=== PATIENT | female | born 1945 | race Caucasian/White ===

== ENCOUNTER → 2016-08-15 | Outpatient (CLI) | payer MEDICARE, BC ==
[~2016-08-15] MED LIST: ACTONEL PO; BRINTELLIX10 MG PO; CELEXA PO; CLOPIDOGREL75 MG PO; HYDROXYZINE HCL25 M1 PO; LANTUS SOL100 UNIT/1 SUBQ; LANTUS100 UNITS/; LASIX20 MG PO; LIPITOR40 MG PO; METOPROLOL SUCC25 MG PO; NORVASC10 MG PO; NOVOLOG FL100 UNIT/1 SUBQ; NOVOLOG100 U/M1; PATIENT'S PHARMACY; PLAVIX PO; SYNTHROID75 MCG PO; TRICOR134 MG PO; URSODIOL250 MG PO; VICTOZA0.6 MG/0.1 SQ; WELLBUTRIN SR PO; XIFAXAN550 MG PO; [UNRECOGNIZED DRUG - OTHER]
--- NOTE | ~2016-08-15 | MR3 ---
[facility] A Service of [facility] RADIOLOGY TEXT RESULTS PATIENT: ADOLFO OLSEN [facility] UN[facility] #: [id number] AGE: [address]: Waqar Archer MD SEX: F ORDER DR: [id number] [facility] [address]. [place], [place] [address] [id number] MR#: [id number] Acc #: [id number] NAME: ADOLFO OLSEN. : 1945 SEX: F STUDY DATE/TIME: 08/15/2016 15:19 UNIT: CMRI ROOM: STUDY DESCRIPTION: MR Abdomen Wo Contrast Attending Physician: Waqar Archer M.D. Ordering Physician: Waqar Archer M.D. Primary Care Physician: Lisbet Ba A.P.R.N. MRI CENTER REPORT This report is preliminary unless electronic signature is present. EXAM MRI abdomen without contrast. INDICATIONS Follow up left renal lesion. PROCEDURE Multisequence, multiplanar MR imaging of the abdomen without the administration of contrast. Contrast was not administered secondary to patient's renal function at the time of this study. GFR was 31. COMPARISON 01/14/2016. FINDINGS The lesion of interest in the lateral left mid kidney measures 1.7 cm and is stable. It has some increased T2 signal intensity and what appears to be internal septations. There is a 1.9 cm benign simple cyst at the lower pole of the right kidney. No new renal lesion is seen on this unenhanced study. Cirrhotic morphology of the liver. No appreciable liver mass is seen on this unenhanced study. Uncomplicated cholelithiasis. Spleen is upper limits of normal to minimally enlarged at 13.2 cm. Re-demonstration of right sided retroperitoneal varices. There is no ascites. Pancreas, biliary system, adrenal glands and bowel loops have normal signal. IMPRESSION 1. The patient did not receive contrast secondary to renal function at the time of this study. 2. The lesion of interest in the lateral left mid kidney is stable in [facility] A Service of [facility] RADIOLOGY TEXT RESULTS PATIENT: ADOLFO OLSEN [facility] 46 UNIT #: [id number] AGE: [address]: Waqar Archer MD SEX: F ORDER DR: size from 01/14/2016. Recommend continued attention on followup to document persistent stability. 3. Benign cyst of the lower pole of the right kidney. 4. Cirrhotic morphology of the liver. No definite liver lesion is seen on this unenhanced study. Dictated by... Torito Norton M.D. THIS IS AN ELECTRONICALLY VERIFIED REPORT Torito Norton M.D. at 08/18/2016 7:14 AM EED/nigel TD: 08/16/2016 14:08 JOB #: [id number] MRI CENTER REPORT Page 1 of 1 COPY
[2016-08-15 15:16] LABS: POC - CREATININE 1.68 mg/dL (0.44-1.03)
[2016-08-15 16:17] LABS: CREATININE SERUM 1.4 mg/dL (0.6-1.4); GLOM FILT RATE Estimated 39.5 mL/min (>60)
== END | disposition home or self-care (01) ==
LOC: CMRI 14:30
PROVIDERS: Urology
DX: N28.89 Other specified disorders of kidney and ureter (principal); N28.1 Cyst of kidney, acquired; K74.60 Unspecified cirrhosis of liver
CPT/HCPCS: 36415; 74181; 82565; 84520

== ENCOUNTER 2016-11-07 05:14 | Inpatient (IN) | payer MEDICARE, BC ==
--- NOTE | ~2016-11-07 | CR72 ---
[facility] A Service of [facility] RADIOLOGY TEXT RESULTS PATIENT: ADOLFO OLSEN LOCATION: [facility] : 47 UNIT #: [id number] AGE: [address]: AMY FARFAN MD SEX: F ORDER DR: [id number] [facility] [address] [place], [place] [address] [id number] I MR#: [id number] Acc #: [id number] NAME: ADOLFO OLSEN. : 1945 SEX: F STUDY DATE/TIME: 11/07/2016 6:19 UNIT: [facility] ROOM: 57034 STUDY DESCRIPTION: CR Chest Single View Portable Attending Physician: Amy Farfan M.D. Ordering Physician: Liang Rice M.D. Primary Care Physician: Lisbet Ba A.P.R.N. MEDICAL IMAGING REPORT This report is preliminary unless electronic signature is present EXAM Single view chest. INDICATIONS Cough and hypoglycemia for 1 day. Shortness of air. FINDINGS Single portable AP view of the chest compared to 01/15/2006. The heart is enlarged. Lung volumes are low. There is crowding of the pulmonary interstitium, which could be due to low lung volumes or mild interstitial edema. No pneumothorax. IMPRESSION 1. Cardiomegaly. 2. Low lung volumes. 3. Prominence of the central pulmonary vasculature may be artifact due to the low lung volumes; however, correlate for any evidence of mild interstitial edema. Dictated by... Buddy Bingham M.D. THIS IS AN ELECTRONICALLY VERIFIED REPORT Buddy Bingham M.D. at 11/07/2016 1:43 PM RPC/palak TD: 11/07/2016 11:00 JOB #: [id number] MEDICAL IMAGING REPORT Page 1 of 1 COPY
--- NOTE | ~2016-11-07 | CR63 ---
[facility] A Service of [facility] RADIOLOGY TEXT RESULTS PATIENT: ADOLFO OLSEN LOCATION: [facility] [id number] : 46 UNIT #: [id number] AGE: [address]: AMY FARFAN MD SEX: F ORDER DR: [id number] [facility] [address] [place], [place] [address] [id number] I MR#: [id number] Acc #: [id number] NAME: ADOLFO OLSEN. : 1945 SEX: F STUDY DATE/TIME: 11/07/2016 11:08 UNIT: CEDOF ROOM: 15092 STUDY DESCRIPTION: CR Chest 2 View Attending Physician: Amy Farfan M.D. Ordering Physician: Andrea Dickinson Jr., M.D. Primary Care Physician: Lisbet Ba A.P.R.N. MEDICAL IMAGING REPORT This report is preliminary unless electronic signature is present EXAM Chest x-ray, 11/07. INDICATIONS Dizziness, shortness of air, weakness and hypoglycemia today. History of hypertension. FINDINGS Two views of the chest are compared with 11/07/16 at 0619 hours. Heart remains enlarged. There are trace effusions. There is continued infiltrate or atelectasis at the left lung base. There is improved aeration at the right base. No pneumothorax. IMPRESSION Stable cardiomegaly. Small bilateral effusions are present with persistent infiltrate or atelectasis at the left base. Aeration of the right lung base has improved since earlier this morning. Dictated by... Zan Rinaldi Jr., M.D. THIS IS AN ELECTRONICALLY VERIFIED REPORT Zan Rinaldi Jr., M.D. at 11/07/2016 4:57 PM ANDREA/palak TD: 11/07/2016 13:41 JOB #: [id number] MEDICAL IMAGING REPORT Page 1 of 1 COPY
--- NOTE | ~2016-11-07 | HP ---
Unit #: [id number] #: [id number] Patient: ADOLFO OLSEN [id number] [address] [address] [id number] I MR#: [id number] NAME: ADOLFO OLSEN ROOM: 10131 Age: 71 Sex: F Admission Date: 11/07/2016 : 1945 Attending Physician: Amy Farfan M.D. Primary Care Physician: Lisbet Ba A.P.R.N. HISTORY AND PHYSICAL CHIEF COMPLAINT Low blood sugar. HISTORY OF PRESENT ILLNESS The patient is a 71-year-old female with a history of chronic kidney disease, diabetes, and nonalcoholic cirrhosis, who presented to the emergency room with a low blood sugar. The patient stated that she is on Lantus and NovoLog. The patient stated that she has been on the same regime for the last three months. However, the patient stated that she has been running low sugars in the last few days in the range of 50s. The patient received D50 in the emergency department and the sugar is up to the 60s, and she is being admitted for the above reasons. The patient denies any fever, chills, nausea, vomiting, or head trauma. PAST MEDICAL HISTORY 1. Chronic kidney disease stage 3. 2. Type 2 diabetes. 3. Hypertension. 4. 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 5. Vitamin D deficiency. 6. Hypothyroidism. 7. Hyperlipidemia. PAST SURGICAL HISTORY 1. Knee surgery. 2. Back surgery. 3. Ankle surgery. 4. Pituitary surgery. 5. Cataract surgery. HOME MEDICATIONS 1. NovoLog Pen. 2. Lantus. 3. Ursodiol. 4. Actonel. 5. Metoprolol. 6. Hydroxyzine. 7. Synthroid. 8. Norvasc. 9. Plavix. 10. Lasix. 11. Xifaxan. ALLERGIES Unit #: [id number] #: [id number] Patient: ADOLFO OLSEN Cymbmio. FAMILY HISTORY Diabetes. SOCIAL HISTORY She is a former smoker. No history of alcohol and no history of illicit drug abuse. REVIEW OF SYSTEMS A 14-point review of systems was performed and only pertinent positive findings are described above. The remaining are negative. PHYSICAL EXAMINATION GENERAL: Patient is lying in bed not in acute distress. VITAL SIGNS: Temperature is 98, pulse 57, respiratory rate 22, blood pressure 107/78, and saturating 98% on room air. HEENT: Head atraumatic, normocephalic. Pupils equal, round, and reactive to light and accommodation. Moist mucous membranes. NECK: Supple. LUNGS: Decreased air entry at the bases. No rhonchi. No wheezing. HEART: Regular rate and rhythm. ABDOMEN: Soft. Positive bowel sounds. EXTREMITIES: No cyanosis. Positive for 2+ pedal edema. SKIN: Patient has telangiectasis along her upper chest wall. NEUROLOGIC: No gross focal motor deficit. DIAGNOSTIC STUDIES LABORATORY: WBC 6.1, hemoglobin 11, hematocrit 34.6, and platelets 129,000. Sodium 138, potassium 3.2, chloride 104, bicarb 26, glucose 93, BUN 40, creatinine 1.9, AST 64, and ALT 39. Lipase 30 and amylase 19. BNP is 817. Glucose 65. Urinalysis shows trace protein. IMAGING: Chest x-ray shows stable cardiomegaly. Small bilateral effusions are present with persistent infiltrate or atelectasis at the left base. Aeration of the right lung base has improved since earlier this morning. ASSESSMENT 1. Hypoglycemia. 2. Acute on chronic kidney disease. 3. Hypokalemia. PLAN Admit patient to observation. Patient will be started on IV fluids of D10 at 30 mL/hr. Replace the potassium per protocol. Will place a Renal consult. Continue with Lasix. Patient will be on Accu-Cheks a.c. and at bedtime and will hold insulin. Further recommendations will follow. Dictated by Erasmo Hemphill TD: 11/07/2016 15:56 JOB #: [id number] Unit #: [id number] #: [id number] Patient: ADOLFO OLSEN HISTORY AND PHYSICAL Page 1 of 1 X AMY FARFAN MD X HISTORY AND PHYSICAL
--- NOTE | ~2016-11-07 | DS ---
Unit #: [id number] #: [id number] Patient: ADOLFO OLSEN [id number] [address] [address] [id number] I MR#: [id number] NAME: ADOLFO OLSEN. ROOM: 335 Age: 71 Sex: F Admission Date: 11/09/2016 : 1945 Discharge Date: Attending Physician: Ginny Ramirez M.D. Primary Care Physician: Lucie YusufPMarioRIra DISCHARGE SUMMARY DISCHARGE DIAGNOSES 1. Significant sinus pauses, greater than 4.5 seconds. Patient is being transferred to [facility] for pacemaker placement by Dr. Arana. 2. New onset atrial fibrillation with tachybrady syndrome, heart rate greater than 150 with pauses greater than 4.5 seconds. 3. Acute kidney injury. 4. Chronic kidney disease, stage 3. 5. Hypokalemia. 6. Cirrhosis with nonalcoholic steatohepatitis. 7. Hypertension. 8. Diabetes mellitus type 2, insulin dependent. 9. Vitamin D deficiency. 10. Hypothyroidism. 11. Hyperlipidemia. 12. Left lung atelectasis. 13. Mild protein malnutrition. 14. Acute on chronic diastolic heart failure. 15. Fluid overload, likely from cirrhosis and heart failure. 16. Thrombocytopenia from cirrhosis. CONSULTATIONS 1. Dr. Quiñones. 2. Dr. Argueta. PROCEDURES None. DIAGNOSTIC STUDIES LABORATORY: Glucose 127, sodium 141, potassium 3.7, and creatinine 2.1. WBC 4.1, hemoglobin 10.2, and platelets 101. Hemoglobin A1c 5.8. Albumin 2.8. IMAGING: Chest x-ray, two views, shows cardiomegaly and bilateral effusions with persistent infiltrates or atelectasis, left base. ALLERGIES None. DISCHARGE MEDICATIONS 1. Lipitor 40 daily. 2. NovoLog low dose sliding scale. 3. Spironolactone 12.5 p.o. b.i.d. 4. Protonix 40 daily. Unit #: [id number] #: [id number] Patient: ADOLFO OLSEN 5. Xifaxan 550 p.o. b.i.d. 6. Hydroxyzine 25 four times daily. 7. Ursodiol 250 mg 3 times daily. 8. Lasix 80 IV q.6. 9. Synthroid 75 mcg p.o. daily. HOSPITALIZATION COURSE This is a 71-year-old admitted initially for low blood sugars. Found to have fluid overload. Currently, she is having sinus pauses and being transferred to [facility] [place] for pacemaker placement. Significant sinus pauses of greater than 4.5 second with a new onset atrial fibrillation with tachybrady syndrome. Patient needs pacemaker. Cardiology has been contacted. There are transferring the patient to [facility] for pacemaker placement. Acute kidney injury with chronic kidney disease, stage 3. Likely from cirrhosis and CHF. Patient is receiving diuretics as per renal. Cirrhosis with DE ANDA. Patient is receiving Lasix. Currently, her swelling is better. Hypokalemia. Replaced the potassium. Diabetes mellitus type 2, insulin dependent. She did receive insulin during her hospitalization course. Left lung atelectasis, no pneumonia. Hypertension, uncontrolled. Patient receiving Lasix and Toprol, which has been hold secondary to severe sinus pauses. Thrombocytopenia secondary to cirrhosis. Patient will be transferred to [facility] on telemetry bed. Accepting physician: Dr. Arana. Rest of the treatment at [facility] [place]. Discussed with patient and daughter. They agreed to transfer. Discharge time taken is 35 minutes. Dictated by... Erasmo Saldana/palak TD: 11/10/2016 11:31 JOB #: [id number] Unit #: [id number] #: [id number] Patient: ADOLFO OLSEN DISCHARGE SUMMARY Page 1 of 1 X Ginny Ramirez MD X DISCHARGE SUMMARY
--- NOTE | ~2016-11-07 | CO ---
Unit #: [id number] #: [id number] Patient: ADOLFO OLSEN [id number] [address] [address] [id number] I MR#: [id number] NAME: ADOLFO OLSEN. ROOM: 79813 Age: 71 Sex: F Admission Date: 11/07/2016 : 1945 Attending Physician: Momo Farfan M.D. Primary Care Physician: Lisbet Ba A.P.R.N. Consultation Date: 11/07/2016 CONSULTATION REPORT REASON FOR CONSULT Acute on chronic kidney disease. HISTORY OF PRESENT ILLNESS Ms. Olsen is a pleasant 71-year-old white female with multiple medical problems including chronic kidney disease, diabetes and cirrhosis who was admitted due to issues with low blood sugars. The intake sheet says that her blood sugar was 25 per EMS. Apparently, she has been having trouble with blood sugars running in the 50 range for the last several days. In addition, she has just not been feeling good for the last several weeks. She says she has some weakness and chronic diarrhea from her cirrhosis medicine. She has also been retaining fluid and feels like she has about 15 pounds of weight gain on her. She has had some dyspnea on exertion. I asked her about any history of congestive heart failure and says that she has been seen by Dr. Parish at [facility] [place] who told her that her heart checked out okay but he has mentioned a diagnosis of congestive heart failure. The patient denies urinary complaints. She does have some chronic diarrhea with her Xifaxan medication for cirrhosis. She avoids NSAIDs. No fevers or chills. PAST MEDICAL HISTORY Significant for: 1. Chronic kidney disease stage 3 due to diabetes and hypertension. 2. Type 2 diabetes. 3. Hypertension. 4. 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 5. Vitamin D deficiency. 6. Hypothyroidism. 7. Hyperlipidemia. PAST SURGICAL HISTORY She has had: 1. Knee and back surgery. 2. Ankle surgery. 3. Pituitary surgery. 4. Cataract surgery. MEDICATIONS Home med list is still pending. According to my partner's office note from June 22, 2016, her medications were as follows: 1. Hydroxyzine p.r.n. 2. Nexium 20 mg a day. 3. Flonase inhaler. 4. Xifaxan 550 mg twice a day. Unit #: [id number] #: [id number] Patient: ADOLFO OLSEN 5. Zinc daily. 6. Furosemide 20 mg a day. 7. Metoprolol succinate 25 mg a day. 8. Ursodiol 250 mg three times a day. 9. Brintellix 5 mg daily. 10. Atorvastatin 40 mg daily. 11. Calcium plus vitamin D daily. 12. Plavix 75 mg a day. 13. Fenofibrate 134 mg a day. 14. Lantus insulin as directed. 15. Synthroid 100 mcg daily. 16. NovoLog FlexPen. 17. Vitamin D daily. ALLERGIES She has a coded allergy to Cymbalta, according to our notes. FAMILY HISTORY Significant for some diabetes, heart disease with stroke and congestive heart failure. No family history of dialysis. SOCIAL HISTORY She is a former smoker. She never drank alcohol heavily. No drug use. REVIEW OF SYSTEMS A complete twelve point review of systems was completed with the above findings. In addition, she denies any headaches or dizziness. No nosebleeds. No sore throat or earache. No chest pain or palpitations. No cough or hemoptysis. No vomiting, no bright red blood per rectum or melena. No dysuria or hematuria. She does have significant swelling in her legs. She denies pruritus. No flank pain, no chills, no night sweats or hot flashes. No intolerance to heat or cold, no bleeding issues. She thinks she has gained again about 15 pounds of fluid weight over the last several weeks. Unless otherwise indicated, the review of systems was negative. PHYSICAL EXAMINATION VITAL SIGNS: The patient is afebrile. Pulse 57, respiratory rate 20, blood pressure 135/65. GENERAL: This is a 71-year-old female who is alert, answers questions appropriately but is in no acute distress. HEENT: Head is atraumatic, normocephalic. Eyes show pale conjunctivae but no scleral icterus. No nasal drainage or nosebleed. Oropharynx is moist. No thrush. NECK: No rigidity. HEART: Bradycardic and regular with no significant murmur or rub appreciated. LUNGS: Without wheezing or rhonchi. Breathing is nonlabored. ABDOMEN: Appears distended but soft, nontender. Bowel sounds are present. No masses appreciated. EXTREMITIES: No lower extremity clubbing or cyanosis. She has 2+ pitting edema below the knees bilaterally. SKIN: Dry with no rashes. She does have some telangiectasias along her upper chest wall. MUSCULOSKELETAL: No CVA tenderness to palpation. NEUROLOGICAL: Some mild generalized weakness without focal deficit. LYMPHATIC EXAM: There is no neck cervical lymphadenopathy. PSYCHIATRIC: Mood and affect appear normal. Unit #: [id number] #: [id number] Patient: ADOLFO OLSEN DIAGNOSTIC STUDIES LABORATORY: Last blood sugar in the computer was 65. BNP on admission was 817. Chemistry earlier this morning showed a sodium of 138, potassium of 3.2, chloride 104, bicarb 26, glucose 93, BUN 40, creatinine up to 1.9. AST was high at 64. Albumin was 3.3. CBC was remarkable only for a hemoglobin of 11 and platelet count 129. No peripheral eosinophilia. Old labs in the computer here have ranged anywhere between 1.0 and 1.9 over the last few years with the most recent creatinine of 1.4 in July. Previous UAs here have been negative for protein or blood. ASSESSMENT AND PLAN 1. Mild acute on underlying chronic kidney disease stage 3 from diabetes and hypertension: Her acute kidney injury may be related to worsening cirrhosis physiology and the need for higher diuretics with recent increase in her Lasix from 20 to 40 mg a day. This will need to be watched as she does have volume excess with dyspnea on exertion and does need diuresis. Will order a urinalysis as well as a CPK level with her increased AST. Will also watch closely her proton pump inhibitor use and her fibrate use. I will check a lipid panel in the morning to be sure she still needs the fibrate. 2. Hypokalemia: This is being replaced and I will recheck a potassium and a magnesium level after replacement. 3. Cirrhosis from nonalcoholic steatohepatitis: She is followed by a liver specialist at [place]. She has not needed any paracentesis to this point. She may be a good candidate for Aldactone as an additional diuretic. 4. Hypertension: The patient's blood pressure is reasonable and will need to be monitored. 5. Diabetes: Certainly wonder, with her liver and kidney disease, if she does not need her insulin doses cut back dramatically. I will check a hemoglobin A1c to see if this is the case. 6. History of congestive heart failure, unknown type: I suspect this is diastolic dysfunction. We will check a chest x-ray and start diuresis. I would like to thank Dr. Farfan for this consultation and the opportunity to participate in the evaluation and care of Ms. Olsen. Dictated by... Andrea Dickinson Jr., M.D. LEROY/paula TD: 11/07/2016 10:45 JOB #: [id number] Unit #: [id number] #: [id number] Patient: ADOLFO OLSEN CONSULTATION REPORT Page 1 of 1 X Andrea Dickinson MD X CONSULTATION REPORT
--- NOTE | ~2016-11-07 | CO ---
Unit #: [id number] #: [id number] Patient: ADOLFO OLSEN [id number] [address] [place], [place] [address] [id number] MR#: [id number] NAME: ADOLFO OLSEN. ROOM: 335 Age: 71 Sex: F Admission Date: 11/09/2016 : 1945 Attending Physician: Ginny Ramirez M.D. Primary Care Physician: Lisbet Ba A.P.R.N. CONSULTATION REPORT REASON FOR CONSULTATION Bradycardia and pauses. HISTORY OF PRESENT ILLNESS This is a 71-year-old female, known to Dr. Arana with a past medical history of hypertension, diabetes mellitus type 2, chronic kidney disease stage 3, DE ANDA cirrhosis, and hypothyroidism. The patient had a Lexiscan Cardiolite stress test on 09/06/2011 which revealed no ischemia and normal ejection fraction. She denies any previous cardiac catheterizations. There are no reports of myocardial infarction or documented cerebrovascular accidents. She is on insulin for her diabetes. She is also on Plavix, though there is no documentation of why Plavix was prescribed. She presented to the hospital with complaints of low blood sugar. Her blood sugar had been running in the 50s over the last few days. In the emergency department, it was reportedly as low as 26. She received D50 and was admitted for further management. She denies any episodes of chest pain. She has had no dizziness, palpitations, or syncope at home. However, today, after taking her medication, she felt very lightheaded and had a feeling like she was going to pass out. Telemetry revealed a 4.55 seconds pause, followed by several other pauses close to 3 seconds. Again, she was symptomatic with some dizziness. There was no nausea, vomiting, or diaphoresis. Telemetry revealed pauses, but no high-grade AV blocks. Of note, she was in sinus rhythm earlier today, and the pauses were noted after change in rhythm to atrial fibrillation. The patient has no documented history of atrial fibrillation. Her home dose of metoprolol was discontinued. Despite stopping the metoprolol, she has continued to have slowing in symptoms. She has been recommended for transfer for permanent pacemaker. The patient is known to Dr. Arana, and was requested to be transferred to [facility]. Dr. Arana was notified and is agreed to accept the patient. PAST MEDICAL HISTORY 1. Lexiscan Cardiolite stress test on 09/06/2011 revealed no ischemia. Ejection fraction normal. 2. Previous 2D echocardiogram at [facility] with records unavailable. 3. Hypertension. 4. Hyperlipidemia. 5. Insulin-dependent diabetes mellitus, type 2. 6. Chronic kidney disease, stage 3. 7. DE ANDA cirrhosis. 8. Hypothyroidism. 9. Vitamin D deficiency. Unit #: [id number] #: [id number] Patient: ADOLFO OLSEN 10. Reformed tobacco abuse. PAST SURGICAL HISTORY 1. Knee surgery. 2. Back surgery. 3. Ankle surgery. 4. Cataract extraction. 5. Pituitary gland surgery. HOME MEDICATIONS Lipitor 40 mg p.o. daily, NovoLog 30 units in a.m. and 40 units at lunch and 40 units at dinner that is subcu, Lantus 60 units subcu at bedtime, Actonel 35 mg p.o. weekly on Sunday, Plavix 75 mg p.o. daily, Xifaxan 550 mg p.o. b.i.d., TriCor 134 mg p.o. daily, hydroxyzine 25 mg p.o. t.i.d. to q.i.d., Norvasc 10 mg p.o. daily, metoprolol succinate 25 mg p.o. daily, ursodiol 250 mg p.o. t.i.d., Lasix 20 mg p.o. daily, and levothyroxine 75 mcg p.o. daily. ALLERGIES No known drug allergies. SOCIAL HISTORY The patient is a reformed smoker. There are no reports of alcohol or illicit drug use. FAMILY HISTORY Significant for diabetes. REVIEW OF SYSTEMS Ten-point review of systems is negative except for details noted above in HPI. PHYSICAL EXAMINATION VITAL SIGNS: Temperature 98.8, pulse 116, blood pressure 144/71. CONSTITUTIONAL: This is a 71-year-old white female, in no acute distress. SKIN: Warm and dry. NECK: Supple. No jugular vein distention. No hepatojugular reflux. Normal carotid upstrokes. No carotid bruits auscultated. HEART: S1 and S2. Regularly irregular. No murmurs, rubs, or gallops. LUNGS: Bilateral breath sounds have good air entry throughout all lung simon. Respirations are even and nonlabored. No rales, rhonchi, or wheezes. ABDOMEN: Soft, nontender, and nondistended. Positive bowel sounds auscultated x4 quadrants. No ascites noted. EXTREMITIES: Bilateral lower extremities have positive pitting edema. DP and PT pulses are 2+. Capillary refill is less than 2 seconds. DIAGNOSTIC STUDIES LABORATORY RESULTS: White blood cell count 4.1, hemoglobin 10.2, hematocrit 32.4, platelets 101. Sodium 141, potassium 3.6, chloride 103, CO2 of 29, BUN 50, creatinine 2.1, glucose 129, magnesium 2.0, total protein 5.9, albumin 2.8, AST 50, ALT 34, alkaline phos 53. CK 150. BNP 817. Hemoglobin A1c 5.8. Total cholesterol 82, triglycerides 50, LDL 40, HDL 32. TSH pending. Urinalysis, positive for trace protein. IMAGING STUDIES: Chest x-ray reveals stable cardiomegaly. Small Unit #: [id number] #: [id number] Patient: ADOLFO OLSEN bilateral effusions with persistent infiltrate atelectasis in left base. Right lung base improved since previous study. CARDIOVASCULAR STUDIES: EKG pending. Telemetry reveals new atrial fibrillation with rapid ventricular response. Previously in sinus rhythm this morning. Multiple pauses with the greatest pause at 4.55 seconds. IMPRESSION 1. Sick sinus syndrome with significant pauses, greatest pause 4.55 seconds. 2. New-onset atrial fibrillation, previously in sinus rhythm. 3. Hypertension. 4. Hyperlipidemia. 5. Diabetes mellitus, type 2. 6. Acute kidney injury on chronic kidney disease, stage 3. 7. Nonalcoholic steatohepatitis cirrhosis with volume overload. 8. Hypothyroidism. 9. Normal stress test in 08/2011. 10. Mild anemia. 11. Mild thrombocytopenia. 12. Reformed tobacco abuse. 13. Hypoglycemia, resolved. PLAN 1. The patient presented to the hospital with complaints of hypoglycemia. She was admitted for further observation. 2. Cardiology was consulted due to significant pauses on telemetry. 3. The patient's metoprolol has been discontinued. 4. TSH level has been obtained and is pending. 5. EKG has been ordered, but there is no evidence of high degree AV blocks. The patient does have significant pauses with underlying atrial fibrillation. 6. The patient's Plavix has been placed on hold. 7. She has been recommended for permanent pacemaker and she has requested to be transferred to [facility] for pacemaker placement with Dr. 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 8. Dr. Arana was called and had accepted the patient for transfer. 9. Upon transfer the patient may need Nephrology and hospitalist for further management. Dictated by... Leni Browning APRN TR/salty TD: 11/12/2016 02:52 JOB #: [id number] Unit #: [id number] #: [id number] Patient: ADOLFO OLSEN CONSULTATION REPORT Page 1 of 1 X X CONSULTATION REPORT
[~2016-11-07 05:14] MED LIST changes: -ACTONEL PO; -BRINTELLIX10 MG PO; -CELEXA PO; -CLOPIDOGREL75 MG PO; -HYDROXYZINE HCL25 M1 PO; -LANTUS SOL100 UNIT/1 SUBQ; -LASIX20 MG PO; -LIPITOR40 MG PO; -METOPROLOL SUCC25 MG PO; -NORVASC10 MG PO; -NOVOLOG FL100 UNIT/1 SUBQ; -PATIENT'S PHARMACY; -SYNTHROID75 MCG PO; -TRICOR134 MG PO; -URSODIOL250 MG PO; -WELLBUTRIN SR PO; -XIFAXAN550 MG PO
[2016-11-07 06:11] LABS: BASOPHIL% 0.4 % (0-2.5); EOSINOPHIL% 0.8 % (0.0-7.0); HEMATOCRIT 34.6 % (35.0-45.0); LYMPHOCYTE# 0.8 X10e3 (1.0-3.5); LYMPHOCYTE% 13.3 % (17.0-45.0); MEAN CELL VOLUME 82.2 FL (83-96); MEAN CORPUSCULAR HEMOGLOBIN 26.2 PG (28-34); MEAN CORPUSCULAR HGB CONC 31.8 g/dL (30-36); MEAN PLATELET VOLUME 8.6 FL (6.5-11.5); MONOCYTE# 0.7 X10e3 (0-1.0); MONOCYTE% 11.2 % (3.0-12.0); NEUTROPHIL# 4.5 X10e3 (1.5-7.1); NEUTROPHIL% 74.3 % (40-75); PLATELET COUNT 129 X10e3 (140-420); RED BLOOD COUNT 4.21 X10e (3.90-5.30); RED CELL DISTRIBUTION WIDTH 16.3 % (11.0-15.5); WHITE BLOOD COUNT 6.1 X10e3 (4.0-10.5)
[2016-11-07 06:12] LABS: DIFF IND NO
[2016-11-07 06:45] LABS: ALBUMIN SERUM 3.3 g/dL (3.5-5.0); BILIRUBIN, DIRECT 0.4 mg/dL (0.0-0.2); BILIRUBIN,TOTAL 1.4 mg/dL (0.2-2.0); BUN/CREATININE RATIO 21.05; CALCIUM SERUM 8.8 mg/dL (8.4-10.2); CREATININE SERUM 1.9 mg/dL (0.6-1.4); GLOM FILT RATE Estimated 26.3 mL/min (>60); POTASSIUM 3.2 mmol/L (3.5-5.1); PROTEIN TOTAL SERUM 6.9 g/dL (6.0-8.3)
[2016-11-07] MEDS ORDERED: PATIENT'S PHARMACY (10:11)
[2016-11-07] MEDS ORDERED: LANTUS SOL100 UNIT/1 SUBQ (10:12)
[2016-11-07] MEDS ORDERED: NOVOLOG FL100 UNIT/1 SUBQ (10:12)
[2016-11-07] MEDS ORDERED: TRICOR134 MG PO (10:12)
[2016-11-07] MEDS ORDERED: LIPITOR40 MG PO (10:13)
[2016-11-07] MEDS ORDERED: CELEXA PO (10:13)
[2016-11-07] MEDS ORDERED: WELLBUTRIN SR PO (10:14)
[2016-11-07] MEDS ORDERED: URSODIOL250 MG PO (10:14)
[2016-11-07] MEDS ORDERED: HYDROXYZINE HCL25 M1 PO (10:15)
[2016-11-07] MEDS ORDERED: SYNTHROID75 MCG PO (10:15)
[2016-11-07] MEDS ORDERED: ACTONEL PO (10:15)
[2016-11-07] MEDS ORDERED: METOPROLOL SUCC25 MG PO (10:15)
[2016-11-07] MEDS ORDERED: NORVASC10 MG PO (10:16)
[2016-11-07] MEDS ORDERED: LASIX20 MG PO (10:16)
[2016-11-07] MEDS ORDERED: CLOPIDOGREL75 MG PO (10:16)
[2016-11-07] MEDS ORDERED: BRINTELLIX10 MG PO (10:18)
[2016-11-07] MEDS ORDERED: XIFAXAN550 MG PO (10:47)
[2016-11-07 12:38] LABS: URINE SOURCE CLEAN CATCH
[2016-11-07 12:44] LABS: URINE APPEARANCE CLEAR; URINE BILIRUBIN NEG (NEG); URINE BLOOD NEG (NEG); URINE COLOR YELLOW; URINE GLUCOSE NEG (NEG); URINE KETONE NEG (NEG); URINE LEUKOCYTE ESTERASE NEG (NEG); URINE NITRATE NEG (NEG); URINE PH 5.5 (5-8); URINE PROTEIN TRACE (NEG); URINE SPECIFIC GRAVITY 1.018 (1.003-1.035); URINE UROBILINOGEN 0.2 MG/DL (NEG)
[2016-11-07 12:47] LABS: CULTURE INDICATED? NO
[2016-11-07 16:28] LABS: MAGNESIUM 2.4 mg/dL (1.6-3.0); POTASSIUM 3.9 mmol/L (3.5-5.1)
[2016-11-08 07:13] LABS: ALBUMIN SERUM 2.8 g/dL (3.5-5.0); BILIRUBIN,TOTAL 1.4 mg/dL (0.2-2.0); BUN/CREATININE RATIO 22.77; CALCIUM SERUM 8.7 mg/dL (8.4-10.2); CREATININE SERUM 1.8 mg/dL (0.6-1.4); MAGNESIUM 2.1 mg/dL (1.6-3.0); PHOSPHOROUS 2.9 mg/dL (2.5-4.6); POTASSIUM 3.9 mmol/L (3.5-5.1); PROTEIN TOTAL SERUM 5.9 g/dL (6.0-8.3)
[2016-11-09 05:36] LABS: HEMATOCRIT 32.1 % (35.0-45.0); HEMOGLOBIN 10.2 gm/dL (12.0-16.0); MEAN CELL VOLUME 82.2 FL (83-96); MEAN CORPUSCULAR HGB CONC 31.7 g/dL (30-36); MEAN PLATELET VOLUME 9.1 FL (6.5-11.5); RED BLOOD COUNT 3.91 X10e (3.90-5.30); RED CELL DISTRIBUTION WIDTH 16.3 % (11.0-15.5); WHITE BLOOD COUNT 4.2 X10e3 (4.0-10.5)
[2016-11-09 06:33] LABS: BUN/CREATININE RATIO 20.95; CALCIUM SERUM 8.6 mg/dL (8.4-10.2); CREATININE SERUM 2.1 mg/dL (0.6-1.4); GLOM FILT RATE Estimated 23.3 mL/min (>60); PHOSPHOROUS 2.9 mg/dL (2.5-4.6); POTASSIUM 3.6 mmol/L (3.5-5.1)
[2016-11-10 05:24] LABS: HEMATOCRIT 32.4 % (35.0-45.0); HEMOGLOBIN 10.2 gm/dL (12.0-16.0); MEAN CELL VOLUME 81.5 FL (83-96); MEAN CORPUSCULAR HEMOGLOBIN 25.7 PG (28-34); MEAN CORPUSCULAR HGB CONC 31.5 g/dL (30-36); MEAN PLATELET VOLUME 8.7 FL (6.5-11.5); RED BLOOD COUNT 3.98 X10e (3.90-5.30); RED CELL DISTRIBUTION WIDTH 16.2 % (11.0-15.5); WHITE BLOOD COUNT 4.1 X10e3 (4.0-10.5)
[2016-11-10 06:26] LABS: BUN/CREATININE RATIO 23.8; CALCIUM SERUM 8.7 mg/dL (8.4-10.2); CREATININE SERUM 2.1 mg/dL (0.6-1.4); GLOM FILT RATE Estimated 23.3 mL/min (>60); POTASSIUM 3.6 mmol/L (3.5-5.1)
== END 2016-11-10 11:34 | DRG 682 ==
LOC: CED 05:14 → C3A PCU 08:26 → CEDOF 08:26 → CED 09:17 → C3A PCU 18:02 → CEDOF 18:02 → C3A PCU 11-08 07:36 → CED 11-09 16:21 → C3A PCU 11-09 16:21 → CEDOF 11-09 16:21 → C3A PCU 11-10 11:34
PROVIDERS: Emergency Medicine; Internal Medicine
DX: N17.9 Acute kidney failure, unspecified (principal); I50.33 Acute on chronic diastolic (congestive) heart failure; E11.22 Type 2 diabetes mellitus with diabetic chronic kidney disease; E11.649 Type 2 diabetes mellitus with hypoglycemia without coma; D69.59 Other secondary thrombocytopenia; E44.1 Mild protein-calorie malnutrition; I13.0 Hypertensive heart and chronic kidney disease with heart failure and stage 1 through stage 4 chronic kidney disease, or unspecified chronic kidney disease; J98.11 Atelectasis; N18.3 Chronic kidney disease, stage 3 (moderate); K75.81 Nonalcoholic steatohepatitis (NASH); E03.9 Hypothyroidism, unspecified; Z79.02 Long term (current) use of antithrombotics/antiplatelets; Z79.4 Long term (current) use of insulin; Z98.49 Cataract extraction status, unspecified eye; Z87.891 Personal history of nicotine dependence; Z83.3 Family history of diabetes mellitus; Z82.3 Family history of stroke; Z82.49 Family history of ischemic heart disease and other diseases of the circulatory system; D64.9 Anemia, unspecified; I48.91 Unspecified atrial fibrillation; I49.5 Sick sinus syndrome; E55.9 Vitamin D deficiency, unspecified; E87.6 Hypokalemia
CPT/HCPCS: 36415; 71010; 71020; 80048; 80053; 80061; 80076; 81003; 82150; 82550; 82947; 83036; 83690; 83735; 83880; 84100; 84132; 85025; 85027; 99285; J1815; J1940

== ENCOUNTER → 2017-01-30 | Outpatient (CLI) | payer MEDICARE, BC ==
[~2017-01-30] MED LIST changes: +ACTONEL PO; +BRINTELLIX10 MG PO; +CELEXA PO; +CLOPIDOGREL75 MG PO; +HYDROXYZINE HCL25 M1 PO; +LANTUS SOL100 UNIT/1 SUBQ; +LASIX20 MG PO; +LIPITOR40 MG PO; +METOPROLOL SUCC25 MG PO; +NORVASC10 MG PO; +NOVOLOG FL100 UNIT/1 SUBQ; +PATIENT'S PHARMACY; +SYNTHROID75 MCG PO; +TRICOR134 MG PO; +URSODIOL250 MG PO; +WELLBUTRIN SR PO; +XIFAXAN550 MG PO
--- NOTE | ~2017-01-30 | CT3 ---
[facility] A Service of [facility] & [facility] RADIOLOGY TEXT RESULTS PATIENT: ADOLFO OLSEN LOCATION: [facility] : 47 UNIT #: [id number] AGE: [address]: Waqar Archer MD SEX: F ORDER DR: [id number] [facility] [address] [place], [place] [address] [id number] MR#: [id number] Acc #: [id number] NAME: ADOLFO OLSEN. : 1945 SEX: F STUDY DATE/TIME: 01/30/2017 11:36 UNIT: [facility] ROOM: STUDY DESCRIPTION: CT Abd and Pelv WWo Cont Attending Physician: Waqar Archer M.D. Referring Physician: Waqar Archer M.D. Ordering Physician: Waqar Archer M.D. Primary Care Physician: Lisbet Ba A.P.R.N. MEDICAL IMAGING REPORT This report is preliminary unless electronic signature is present EXAM CT abdomen and pelvis with and without contrast HISTORY 71-year-old female followup left renal lesion. COMPARISON MR of the abdomen 08/15/2016. The lesion has been followed previously by MRI but the patient now has a pacemaker precluding MRI scanning. COMPARISON MRI of the abdomen 08/15/2016 FINDINGS Multiphase imaging was performed of the kidneys pre and post IV contrast. 75 mL contrast administered. This CT exam was performed with one or more of the following radiation dose reduction techniques: automatic control, adjustment of mA and/or kV according to patient size, and iterative reconstruction. Precontrast imaging of the kidneys demonstrates no distinct renal lesion. Following administration initiation of IV contrast best seen on the arterial phase there is an enhancing left renal lesion which shows predominately peripheral enhancement but some internal enhancement. This measures approximately 2.2 x 2.2 cm in transverse dimensions and about 2.6 cm in cephalocaudal dimension. This quickly washes out on the delayed-phase images at 90 seconds and at 3 minutes with a subtle residual hypodense lesion seen on the 3-minute delayed phase images. No other renal lesions identified. Urinary collecting system unremarkable. Utilizing similar measurements and compared to the July study the lesion has shown increase in size, increasing from a maximum dimension of 1.7 cm in July to about 2.6 cm on today's study. Some of this could be STS. [facility] A Service of [facility] & [facility] RADIOLOGY TEXT RESULTS PATIENT: ADOLFO OLSEN LOCATION: [facility] : 47 UNIT #: [id number] AGE: [address]: Waqar Archer MD SEX: F ORDER DR: accounted by a different technique, but the overall impression is that the lesion has shown interval increase in size. Given the imaging characteristics and increase in size, this would be concerning for renal neoplasm possibly representing an early renal cell carcinoma. Incidentally noted is a 1.7 cm cyst off the lower pole of the right kidney. There are multiple stones within the gallbladder. Cirrhotic morphologic changes seen within the liver. Scattered diverticular changes. Osseous structures remarkable for extensive postoperative changes lower lumbar spine from multilevel laminectomy from L3-4 to L5-S1 with multilevel discectomy and posterior spinal fixation L3 to S1. Sclerosis within the T12 vertebral body may represent the sequelae of old trauma. There is a inferior endplate compression deformity of T12. Induration is seen in the anterior abdominal wall probably related to therapeutic injections. Bladder and uterus unremarkable. IMPRESSION 1. 2.6 cm indeterminate lesion within the mid pole of the left kidney which suggest interval increase in size when compared to the July 2016 study. This does represent a change in the imaging technique in this patient however the overall impression is that the lesion has shown increase in size and given its enhancement early washout concerning for renal malignancy. 2. Uncomplicated cholelithiasis. 3. Cirrhotic morphologic changes liver. Dictated by... Nicholas Peña M.D. THIS IS AN ELECTRONICALLY VERIFIED REPORT Nicholas Peña M.D. at 02/01/2017 7:54 AM [place]/alexander TD: 01/31/2017 19:10 JOB #: [id number] MEDICAL IMAGING REPORT Page 1 of 1 COPY
[2017-01-30 11:16] LABS: POC - CREATININE 0.99 mg/dL (0.44-1.03)
== END | disposition home or self-care (01) ==
LOC: CCAT 09:34
PROVIDERS: Urology
DX: N28.9 Disorder of kidney and ureter, unspecified (principal); K80.20 Calculus of gallbladder without cholecystitis without obstruction; K76.89 Other specified diseases of liver
CPT/HCPCS: 74178; 82565; Q9967